=== PATIENT | female | born 1985 | race Caucasian/White ===

== ENCOUNTER 2017-09-05 22:14 | Emergency (ER) | payer OTHER ==
[2017-09-05 22:14] VITALS: BMI 28.7
[2017-09-05 23:06] VITALS: O2SAT 97
[2017-09-06 00:16] LABS: RBC URINE 12 /hpf (0-3); URINE BILIRUBIN NEGATIVE (NEGATIVE); URINE BLOOD 1+ (NEGATIVE); URINE COLOR Yellow (YELLOW); URINE GLUCOSE (UA) NORMAL (Normal); URINE KETONE NEGATIVE (NEGATIVE); URINE LEUKOCYTE ESTERASE 2+ Leu/uL (Negative); URINE PROTEIN 1+ mg/dL (NEGATIVE); URINE UROBILINOGEN NORMAL mg/dL (0.2-1.0); WBC URINE 16 /hpf (0-5)
--- NOTE | 2017-09-06 01:06 | C.PDOC ---
History Of Present Illness 32 y/o female with a hx of severe head injury March 2017 (subdural hematoma),here with c/o dizziness, feeling that the room is spinning, nausea, and vomiting that began this evening. Patient reports having a severe head injury in March 2017 and was admitted at [facility] for 8 days. Patient had a seizure in March and June of this year- started on Keppra in march. Last CT was June 2017 with negative results for any acute pathology. Patient notes taking Keppra 500 BIB and Fioricet at home. Patient had a MRI done today and went home after.She was told by personal that after her MRI she may experience symptoms. Once home she started experiencing headache, nausea, NBNB vomiting x2, dizziness, and felt that the room was spinning. She too Zofran at home. Patient is asymptomatic now. Patient is scheduled for an EEG. LMP 08/08/17. Denies head injury or visual changes. No weakness or numbness. Time Seen by Provider: 09/06/17 00:00 Chief Complaint (Nursing): Dizziness/Lightheaded History Per: Patient History/Exam Limitations: no limitations Onset/Duration Of Symptoms: Hrs Current Symptoms Are (Timing): Still Present Severity: Mild Recent travel outside of the [place]: No Additional History Per: Patient Past Medical History Reviewed: Historical Data, Nursing Documentation, Vital Signs Vital Signs: Last Vital Signs Temp 99.6 F 09/05/17 22:59 Pulse 79 09/05/17 22:59 Resp 20 09/05/17 22:59 BP 109/69 09/05/17 22:59 Pulse Ox 97 09/06/17 01:58 - Medical History PMH: Migraine, Seizures Surgical History: (x2) Family History: States: Unknown Family Hx - Social History Hx Tobacco Use: No Hx Alcohol Use: No Hx Substance Use: No - Immunization History Hx Tetanus Toxoid Vaccination: No Hx Influenza Vaccination: No Hx Pneumococcal Vaccination: No Review Of Systems Except As Marked, All Systems Reviewed And Found Negative. Eyes: Negative for: Vision Change ENT: Negative for: Ear Pain Cardiovascular: Negative for: Chest Pain, Palpitations, Orthopnea, Edema, Light Headedness Respiratory: Negative for: Cough Gastrointestinal: Positive for: Nausea, Vomiting (NBNB, x2). Negative for: Abdominal Pain Genitourinary: Negative for: Dysuria, Frequency, Hematuria Musculoskeletal: Negative for: Neck Pain, Shoulder Pain, Arm Pain Skin: Negative for: Rash Neurological: Positive for: Headache, Dizziness, Other ([place] the room is spinning.). Negative for: Weakness, Numbness, Confusion, Seizures Psych: Negative for: Anxiety, Depression Physical Exam - Physical Exam Appears: Non-toxic, No Acute Distress Skin: Warm, Dry Head: Atraumatic, Normacephalic Eye(s): bilateral: Normal Inspection, PERRL, EOMI Ear(s): Left: Normal, Right: Normal Nose: Normal Oral Mucosa: Moist Tongue: Normal Appearing Lips: Normal Appearing Teeth: Normal Dentition Gingiva: Normal Appearing Neck: Normal Lymphatic: Deferred Cardiovascular: Rhythm Regular Respiratory: Normal Breath Sounds Gastrointestinal/Abdominal: Normal Exam Back: Normal Inspection Neurological/Psych: Oriented x3, Normal Speech, Normal Cognition, Normal Cranial Nerves (2-12 intact), Normal Motor, Normal Sensation, Other (No focal deficit) Gait: Steady ED Course And Treatment - Laboratory Results Interpretation Of Abnormal: ua with many epi. LE+. pt is asymptomatic. Urine POC: Negative O2 Sat by Pulse Oximetry: 97 (RA) Pulse Ox Interpretation: Normal Medical Decision Making Medical Decision Making: Plans: * Keppra * Meclizine * UA pt feels much better after meclizine. Given her nightly dose of Keppra. UA reviewed. pt is asymptomatic. Disposition Doctor Will See Patient In The: Office Counseled Patient/Family Regarding: Diagnosis, Need For Followup - Disposition Disposition: HOME/ ROUTINE Disposition Time: 01:25 Condition: GOOD Additional Instructions: follow up with PMD Prescriptions: Meclizine [Antivert] 50 mg PO Q6 PRN #9 tab PRN Reason: Dizziness Instructions: Vertigo (ED) Forms: General Discharge Instructions - Clinical Impression Clinical Impression: Dizziness, Vertigo - Scribe Statement The provider has reviewed the documentation as recorded by the Scribe Jyoti shah All medical record entries made by the Tiffanyibe were at my direction and personally dictated by me. I have reviewed the chart and agree that the record accurately reflects my personal performance of the history, physical exam, medical decision making, and the department course for this patient. I have also personally directed, reviewed, and agree with the discharge instructions and disposition.
[2017-09-06 02:25] VITALS: BP 119/74; PULSE 72; RESP 17; TEMP 98.4
== END 2017-09-06 02:07 | disposition home or self-care (01) ==
LOC: C.ER 22:14
DX: R42 Dizziness and giddiness (principal)

== ENCOUNTER 2018-12-26 15:20 | Emergency (ER) | payer OTHER ==
[2018-12-26 15:21] VITALS: BMI 28.7
[2018-12-26 15:54] VITALS: RESP 18
[2018-12-26] MEDS ORDERED: Sodium Chloride 0.9% 1,000 ML IV STA (16:13)
--- NOTE | 2018-12-26 16:19 | C.PDOC ---
History Of Present Illness 33 y/o F c PMHx epilepsy p/w chest pain x 5 days. Pain is L sided chest, sharp, nonradiating, worse with palpation or cough. Reports cough as well. Denies fever, vomiting, abdominal pain, recent surgery, leg swelling, hemoptysis, pre vious DVT/PE, recent travel. Time Seen by Provider: 12/26/18 16:00 Chief Complaint (Nursing): Chest Pain History Per: Patient History/Exam Limitations: no limitations Onset/Duration Of Symptoms: Days Current Symptoms Are (Timing): Still Present Past Medical History Reviewed: Historical Data, Nursing Documentation, Vital Signs Vital Signs: Last Vital Signs Temp 98.4 F 12/26/18 15:48 Pulse 62 12/26/18 15:48 Resp 18 12/26/18 15:48 BP 116/71 12/26/18 15:48 Pulse Ox 100 12/26/18 15:48 - Medical History PMH: Migraine, Seizures Denies: Diabetes, Hepatitis, HIV, HTN, Sexually Transmitted Disease Surgical History: (x2) Family History: States: Unknown Family Hx - Social History Hx Tobacco Use: No Hx Alcohol Use: No Hx Substance Use: No - Immunization History Hx Tetanus Toxoid Vaccination: No Hx Influenza Vaccination: No Hx Pneumococcal Vaccination: No Review Of Systems Except As Marked, All Systems Reviewed And Found Negative. Constitutional: Negative for: Fever Gastrointestinal: Negative for: Vomiting Physical Exam - Physical Exam Additional Physical Exam Comments: Constitutional: No acute distress. Head: Normocephalic. Atraumatic. Eyes: PERRL. ENT: Moist mucous membranes. Neck: Supple. Cardiovascular: Regular rate. Radial pulse 2+ bilaterally. Chest: Reproducible chest tenderness. Respiratory: Clear to auscultation bilaterally. GI: Soft. Nontender. Nondistended. Back: No CVA tenderness. Musculoskeletal: No tenderness or swelling of extremities. Skin: No rash. Neurologic: Alert, no focal deficit. ED Course And Treatment - Laboratory Results Result Diagrams: 12/26/18 16:54 12/26/18 16:54 O2 Sat by Pulse Oximetry: 100 Pulse Ox Interpretation: Normal Medical Decision Making Medical Decision Making: EKG Sinus rhythm, 65 bpm, no ST/T wave changes. Enzymes negative in this pain of over 24 hours. CXR no consolidation, fracture, PTX. Discharged home, f/u PMD, return to ED worsening pain or dyspnea. Disposition - Disposition Referrals: [facility] [Outside] Disposition: HOME/ ROUTINE Disposition Time: 18:00 Condition: STABLE Prescriptions: Ibuprofen [Motrin] 600 mg PO Q6 #25 tab Instructions: Costochondritis Forms: [facility] (Malay) - Clinical Impression Clinical Impression: Chest wall pain
[2018-12-26] MEDS ORDERED: Sodium Chloride 0.9% 1,000 ML ONE (16:58)
[2018-12-26 17:00] LABS: BASO % 0.4 % (0.0-2.0); EOS % 0.1 % (0.0-4.0); HEMOGLOBIN 12.3 g/dL (11.0-16.0); LYMPH # 1.3 K/uL (1.0-4.3); MEAN CORPUSCULAR HEMOGLOBIN 27.8 pg (27.0-31.0); MEAN CORPUSCULAR HGB CONC 32.2 g/dL (33.0-37.0); MEAN PLATELET VOLUME 8.7 fL (7.2-11.7); MONO # 0.4 K/uL (0.0-0.8); MONO % 8.2 % (0.0-10.0); NEUT # 3.3 K/uL (1.8-7.0); NEUT % 65.3 % (50.0-75.0); NRBC % 0.1 % (0.0-2.0); RBC 4.43 Mil/uL (3.80-5.20); WHITE BLOOD COUNT 5.1 K/uL (4.8-10.8)
[2018-12-26 17:01] LABS: MEAN CELL VOLUME 86.4 fL (81.0-99.0)
[2018-12-26 17:13] LABS: ALB/GLOB RATIO 1.6 (1.0-2.1); ALT/SGPT 18 U/L (9-52); AST/SGOT 20 U/L (14-36); BLOOD UREA NITROGEN 12 mg/dL (7-17); CALCIUM 9.3 mg/dl (8.6-10.4); GFR NON-AFRICAN AMERICAN > 60
[2018-12-26 17:38] LABS: CK-MB < 0.22 ng/mL (0.0-3.38)
--- NOTE | 2018-12-26 18:13 | RAD ---
Date of service: 12/26/2018 HISTORY: Chest pain COMPARISON: No prior. TECHNIQUE: Chest PA and lateral FINDINGS: LINES AND TUBES: None. LUNG AND PLEURA: The lungs are well inflated and clear. No pleural effusion or pneumothorax. HEART AND MEDIASTINUM: The heart is not enlarged. No aortic atherosclerotic calcifications present. The hilar and mediastinal contours are within normal limits. SKELETAL STRUCTURES: The bony structures are within normal limits for the patient's age. VISUALIZED UPPER ABDOMEN: Normal. OTHER FINDINGS: None. IMPRESSION: No active pulmonary disease.
[2018-12-26 18:55] VITALS: BP 104/64; PULSE 66; TEMP 98.7; O2SAT 99
--- NOTE | 2018-12-27 21:43 | CARD ---
APPROVED REPORT Date of service: 12/26/2018 EKG Measurement Heart [id number] SD 110P-8 [id number] <Conclusion> Sinus rhythm with sinus arrhythmia with short SD Otherwise normal ECG
== END 2018-12-26 18:35 | disposition home or self-care (01) ==
LOC: C.ER 15:20
DX: R07.89 Other chest pain (principal); G40.909 Epilepsy, unspecified, not intractable, without status epilepticus
CPT/HCPCS: 71046; 80053; 81025; 82550; 82553; 84484; 85025; 87804; 93005; 96361; 96374; 99285; J1885; J7030